=== PATIENT | male | born 1970 | race Caucasian/White ===

== ENCOUNTER 2017-01-09 03:56 | Emergency (ER) | payer OTHER ==
[2017-01-09] MEDS ORDERED: NS 0.9% 1000 ML* 1,000 ML IV ONE ×3 (04:18→09:11)
[2017-01-09] MEDS ORDERED: Ondansetron INJ* 2 MG/ML VIAL IV ONE ×2 (04:18→09:10)
[2017-01-09] MEDS ORDERED: Ondansetron INJ* 2 MG/ML VIAL ONE (04:22)
--- NOTE | 2017-01-09 04:34 | ED ---
I, Oh,Francheska, scribed for Ankur Flood MD on 01/09/17 at 0421 . Abdominal Pain/Male - HPI Summary HPI Summary: This 46 y/o male presents to ED via for persistent diffuse abd pain since 4 days ago. Pt reports positive n/v and difficulty tolerating food or liquid since 4 days ago. Negative diarrhea. Pt decided to visit ED tonight when he had trouble controlling his abd pain. Zofran was given to pt. Pt is reported to have been n/v when oral glucose was attempted en route by EMS. PMHx includes diverticulosis per pt. - History of Current Complaint Chief Complaint: EDAbdPain Stated Complaint: ABD PAIN Time Seen by Provider: 01/09/17 04:02 Hx Obtained From: Patient, EMS Onset/Duration: Gradual Onset, Lasting Days - 4 days, Still Present Timing: Constant Pain Intensity: 8 Pain Scale Used: 0-10 Numeric Location: Diffuse Radiates: No Aggravating Factor(s): Food, Other: - liquid Alleviating Factor(s): Nothing Associated Signs And Symptoms: Positive: Decreased Appetite, Nausea, Vomiting. Negative: Diarrhea - Allergies/Home Medications Allergies/Adverse Reactions: Allergies Allergy/AdvReac Type Severity Reaction Status Date / Time No Known Allergies Allergy Verified 04/05/16 10:17 PMH/Surg Hx/FS Hx/Imm Hx Endocrine/Hematology History: Denies: Hx Diabetes Cardiovascular History: Denies: Hx Congestive Heart Failure, Hx Hypertension, Hx Pacemaker/ICD History: Denies: Hx Dialysis, Hx Renal Disease Sensory History: Denies: Hx Hearing Aid Psychiatric History: Reports: Hx Panic Disorder - Surgical History Surgery Procedure, Year, and Place: left thumb-SURGERY Infectious Disease History: No Infectious Disease History: Denies: Traveled Outside the [place] in Last 30 Days - Family History Known Family History: Negative: Cardiac Disease - Social History Alcohol Use: None Hx Substance Use: No Substance Use Type: Reports: None Hx Tobacco Use: No Smoking Status (MU): Never Smoked Tobacco Review of Systems Negative: Fever Positive: Abdominal Pain, Vomiting, Nausea. Negative: Diarrhea All Other Systems Reviewed And Are Negative: Yes Physical Exam Triage Information Reviewed: Yes Vital Signs On Initial Exam: Initial Vitals Temp Pulse Resp BP Pulse Ox 98.6 F 75 10 129/75 95 01/09/17 04:00 01/09/17 04:00 01/09/17 04:00 01/09/17 04:00 01/09/17 04:00 Vital Signs Reviewed: Yes Appearance: Positive: Well-Appearing, Pain Distress - mild discomfort Skin: Positive: Warm Head/Face: Positive: Normal Head/Face Inspection Eyes: Positive: JC ENT: Positive: Hearing grossly normal Neck: Positive: Supple Respiratory/Lung Sounds: Positive: Breath Sounds Present Cardiovascular: Positive: RRR Abdomen Description: Positive: Soft, Other: - mild diffuse abd tenderness. Negative: Distended, Guarding Bowel Sounds: Positive: Present, Hypoactive Musculoskeletal: Positive: Strength/ROM Intact Neurological: Positive: Alert, Oriented to Person Place, Time - [place] Coma Scale Coma Scale Total: 15 Diagnostics - Vital Signs Vital Signs Temp Pulse Resp BP Pulse Ox 01/09/17 04:00 98.6 F 75 10 129/75 95 - Laboratory Result Diagrams: 01/09/17 04:35 01/09/17 04:35 Lab Statement: Any lab studies that have been ordered have been reviewed, and results considered in the medical decision making process. - CT CT Ab/P CT Interpretation Completed By: Radiologist - See EMR Re-Evaluation - Re-Evaluation First Eval Re-Evaluation Time: 08:15 Change: Improved Comment: Updated pt on status of CT. Discussed sx and why the pt presents to the ED. Pt reports the pain is improved from onset. Second Eval Re-Evaluation Time: 09:42 Change: Unchanged Comment: Discussed CT and lab results with the pt. Discussed admission v. discharge and he would prefer to be D/C to home. Abdominal Pain Fem Course/Dx - Course Assessment/Plan: This 46 y/o male presents to ED for persistent, diffuse abd pain since 4 days ago. Pt reports difficulty tolerating PO liquid & food and n/ v. Pt has been fluid resuscitated with 2L of IV NS, IV reglan, IV zofran, and morphine. He reports PMHx of diverticulosis. Blood work is noted with elevated WBC of 14.8 and total bilirubin of 1.40. CT Ab/P has been ordered and imaging is pending at this moment. Pt will be signed out with pending CT imaging and dispo. - Diagnoses Provider Diagnoses: Abdominal pain, Diverticulosis Discharge - Discharge Plan Condition: Stable Disposition: HOME Discharge Disposition Comment: Signed out at shift chage. Pending CT images and dispo. Prescriptions: Ciprofloxacin TAB* [Cipro 500 MG TAB*] 500 mg PO BID #19 tab HYDROcodone/ACETAMIN 5-325 MG* [Brunson 5-325 TAB*] 1 tab PO Q4H PRN #10 tab MDD 6 PRN Reason: Pain Metronidazole [Flagyl 500 MG TAB] 500 mg PO QID #39 tab Ondansetron ODT TAB* [Zofran 4 MG Odt TAB*] 4 mg PO Q6H PRN #10 tab.odt PRN Reason: Nausea Patient Education Materials: Diverticulosis (ED), Abdominal Pain (ED) Referrals: Atul NIETO,Giuliano Barnes [Primary Care Provider] - Additional Instructions: FOLLOW UP WITH YOUR DOCTOR. RETURN TO THE EMERGENCY DEPARTMENT FOR ANY WORSENING OF YOUR CONDITION' PAIN, YOU FEEL WORSE, YOU FEEL LIKE PASSING OUT OR QUESTIONS OR CONCERNS. The documentation as recorded by the Anton acevedo Soohyun accurately reflects the service I personally performed and the decisions made by me, Ankur Flood MD.
[2017-01-09 04:59] LABS: Hematocrit 56 % (42-52); Hemoglobin 19.4 g/dl (14.0-18.0); Mean Corpuscular HGB Conc 35 g/dl (31-36); Mean Corpuscular Hemoglobin 30 pg (27-31); Mean Corpuscular Volume 87 fL (80-94); Mean Platelet Volume 9 um3 (7.4-10.4); Red Blood Count 6.45 10^6/ul (4.0-5.4); Red Cell Distribution Width 13 % (10.5-15); White Blood Count 14.8 10^3/ul (3.5-10.8)
[2017-01-09 05:00] LABS: Comments Flag Yes
[2017-01-09 05:09] LABS: Albumin 4.7 g/dL (3.2-5.2); BUN/Creatinine Ratio 22.5 (8-20); C Reactive Protein 2.85 mg/L (< 5.00); Calcium 10.5 mg/dL (8.6-10.3); EGFR African American 101.6 (>60); Globulin 4.1 g/dL (2-4); Magnesium 2.1 mg/dL (1.9-2.7); Potassium 3.5 mmol/L (3.5-5.0); Total Bilirubin 1.4 mg/dL (0.2-1.0); Total Protein 8.8 g/dL (6.4-8.9)
[2017-01-09] MEDS ORDERED: Metoclopramide IV* 5 MG/ML 2 ML VIAL IV ONE (05:25)
[2017-01-09] MEDS ORDERED: Metoclopramide IV* 5 MG/ML 2 ML VIAL ONE (05:26)
[2017-01-09] MEDS ORDERED: Morphine INJ* 4 MG/ML 1 ML SYRINGE IV ONE ×2 (05:26→09:10)
[2017-01-09] MEDS ORDERED: Iohexol 300* (CONTRAST) 10 ML SDV IV ONE (07:53)
--- NOTE | 2017-01-09 09:28 | RAD ---
Indication: Abdominal pain. Contrast: Administered 121.0 ml of OMNIPAQUE 300 mgi/ml CT of the abdomen and pelvis was performed after oral and IV contrast administration. Coronal and sagittal reconstructed images were obtained. The lung bases demonstrate no pleural fluid, nodules or masses. Heart is of normal size without evidence of pericardial effusion. Liver is normal in size. It is diffusely decreased in density consistent with hepatic steatosis. Gallbladder demonstrates no calcified gallstones. No pericholecystic fluid or wall thickening is identified. The pancreas demonstrates no mass effect or ductal dilatation. The spleen is normal in size. No adrenal lesions are noted. The kidneys demonstrate symmetric nephrograms without hydronephrosis. No retroperitoneal lymphadenopathy is noted. No dilated loops of bowel are noted. CT of the pelvis demonstrates stool throughout the colon. There is wall thickening of the sigmoid colon with diverticula. No definite evidence of diverticulitis. No abscess is noted. The urinary bladder is unremarkable. There is no no pelvic adenopathy. Prostate and seminal vesicles are unremarkable. No evidence of bowel obstruction is noted. The visualized bony structures are grossly unremarkable. IMPRESSION: DIVERTICULOSIS WITHOUT DEFINITE EVIDENCE OF DIVERTICULITIS. NO EVIDENCE OF ABSCESS IS IDENTIFIED. LIKELY HEPATIC STEATOSIS.
[2017-01-09] MEDS ORDERED: metroNIDAZOLE TAB* 250 MG PO ONE (09:47)
[2017-01-09] MEDS ORDERED: Ciprofloxacin TAB* 500 MG PO ONE (09:48)
--- NOTE | 2017-01-09 09:55 | ED ---
ITorie Rebecca, scribed for Gurvinder Hernández MD on 01/09/17 at 0817 . Progress - Progress Note Progress Note: Pt was signed out from Dr. Flood. Pt reports diffuse abd pain began 4-5 days ago and he has been unable to tolerate PO intake. Confirms that sx have improved since onset. PMHx diverticulosis. PE reveals: General: mildly ill-appearing, no pain distress Skin: warm, skin color reflects adequate perfusion, dry Head: normal Eyes: EOMI, JC ENT: normal Neck: supple, nontender Respiratory: CTA, breath sounds present Cardiovascular: RRR Abdomen: soft, mildly tender in the LLQ Bowel: hypoactive bowel sounds Musculoskeletal: normal, strength/ROM intact Neuro: normal, sensory/motor intact, A&O x3 Psych: affect/mood appropriate CT Abd/Pel: DIVERTICULOSIS WITHOUT DEFINITE EVIDENCE OF DIVERTICULITIS. NO EVIDENCE OF ABSCESS IS IDENTIFIED. LIKELY HEPATIC STEATOSIS Re-Evaluation - Re-Evaluation First Eval Re-Evaluation Time: 08:15 Change: Improved Comment: Updated pt on status of CT. Discussed sx and why the pt presents to the ED. Pt reports the pain is improved from onset. Second Eval Re-Evaluation Time: 09:42 Change: Unchanged Comment: Discussed CT and lab results with the pt. Discussed admission v. discharge and he would prefer to be D/C to home. Course/Dx - Course Course Of Treatment: NO CRITICAL CARE TIME. DISCUSSED RESULTS WITH PATIENT/ . CLINICALLY, PATIENT HAS DIVERTICULITIS. WILL TREAT FOR DIVERTICULITIS. DISCUSSED ADMISSION VERSES OUT PATIENT TREATMENT. PATIENT WISHES TO GO HOME. [facility] HOME STABLE; F/U PMD, RETURN TO ED IF WORSE. - Diagnoses Provider Diagnoses: Abdominal pain, Diverticulosis The documentation as recorded by the Torie acevedo Rebecca accurately reflects the service I personally performed and the decisions made by , Gurvinder Hernández MD.
[2017-01-09] MEDS ORDERED: Ketorolac INJ* 30 MG/ML 1 ML VIAL IV ONE (10:37)
[2017-01-09 11:15] VITALS: BP 131/72
== END 2017-01-09 11:00 | disposition home or self-care (01) ==
LOC: ED 03:56
DX: R10.9 Unspecified abdominal pain (principal); K57.90 Diverticulosis of intestine, part unspecified, without perforation or abscess without bleeding
CPT/HCPCS: 36415; 74177; 80053; 83605; 83690; 83735; 85025; 86140; 96360; 96361; 96374; 96375; 99285; A9270-GY; J1885; J2270; J2405; Q9967

== ENCOUNTER 2017-10-01 15:39 | Emergency (ER) | payer MEDICAID, OTHER ==
[2017-10-01 19:52] VITALS: BP 0/0
== END 2017-10-01 19:50 | disposition left against medical advice (07) ==
LOC: ED 15:39
DX: R11.10 Vomiting, unspecified (principal); Z53.21 Procedure and treatment not carried out due to patient leaving prior to being seen by health care provider

== ENCOUNTER 2017-11-17 11:23 | Emergency (ER) | payer MEDICAID, OTHER ==
[2017-11-17 11:41] VITALS: BP 141/104
--- NOTE | 2017-11-17 11:55 | UC ---
Abdominal Pain Male HPI - HPI Summary HPI Summary: 3 weeks of generalized low abdominal pain, R back pain, nausea, and low appetite. Reports frequent "dry heaves" with 2-3 episodes of actual vomiting. Denies any urinary symptoms. 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 - History of Current Complaint Chief Complaint: UCAbdominalPain Stated Complaint: ABDOMINAL PAIN, AND VOMITING Time Seen by Provider: 11/17/17 11:44 Hx Obtained From: Patient Onset/Duration: Gradual Onset, Lasting Weeks Timing: Constant Severity Initially: Mild Severity Currently: Moderate Pain Intensity: 4 Location: Discrete At: RLQ, Discrete At: LLQ, Suprapubic Radiates: Yes Radiates to: Back, Flank Character: Aching, Burning, Cramping, Dull Aggravating Factor(s): Food, Movement Alleviating Factor(s): Rest Associated Signs And Symptoms: Positive: Nausea, Vomiting, Diarrhea - Allergies/Home Medications Allergies/Adverse Reactions: Allergies Allergy/AdvReac Type Severity Reaction Status Date / Time No Known Allergies Allergy Verified 11/17/17 11:42 PMH/Surg Hx/FS Hx/Imm Hx GI/ History: Diverticulitis - Surgical History Surgical History: Yes Surgery Procedure, Year, and Place: left thumb-SURGERY - Family History Known Family History: Negative: Cardiac Disease - Social History Lives: With Family Alcohol Use: None Substance Use Type: Heroin - reports clean x 2 months, Prescribed - in the recent past Smoking Status (MU): Never Smoked Tobacco Review of Systems Constitutional: Negative Skin: Negative Eyes: Negative ENT: Negative Respiratory: Negative Cardiovascular: Negative Gastrointestinal: Abdominal Pain, Vomiting, Diarrhea, Nausea Genitourinary: Negative Motor: Negative Neurovascular: Negative Musculoskeletal: Negative Neurological: Negative Psychological: Negative Is Patient Immunocompromised?: No All Other Systems Reviewed And Are Negative: Yes Physical Exam Triage Information Reviewed: Yes Appearance: Well-Appearing, Well-Nourished, Obese Vital Signs: Initial Vital Signs Temp 97.3 F 11/17/17 11:37 Pulse 89 11/17/17 11:37 Resp 16 11/17/17 11:37 BP 141/104 11/17/17 11:37 Pulse Ox 99 11/17/17 11:37 Vital Signs Reviewed: Yes Eye Exam: Normal Eyes: Positive: Conjunctiva Clear ENT Exam: Normal ENT: Positive: Normal ENT inspection, Hearing grossly normal, Pharynx normal Dental Exam: Normal Neck exam: Normal Neck: Positive: Supple, Nontender, No Lymphadenopathy Respiratory Exam: Normal Respiratory: Positive: Chest non-tender, Lungs clear, Normal breath sounds, No respiratory distress, No accessory muscle use Cardiovascular Exam: Normal Cardiovascular: Positive: RRR, No Murmur Abdomen Description: Positive: Soft, McBurney's Point Tenderness - mild, symmetric with pain on LLQ, Other: - low abd tenderness, no pain or tenderness in upper aspect of abd. Negative: CVA Tenderness (R), CVA Tenderness (L), Distended, Guarding Musculoskeletal Exam: Normal Neurological Exam: Normal Neurological: Positive: Alert Psychological Exam: Normal Skin Exam: Normal Abd Pain Male Course/Dx - Course Course Of Treatment: Discussed with patient about need for further testing, as he does not have obvious diagnosis nor does he have follow-up with PCP. Pt agrees to go to ED, states understanding of risks. - Differential Dx/Clinical Impression Provider Diagnoses: abdominal pain Discharge - Sign-Out/Discharge Documenting (check all that apply): Discharge/Admit/Transfer - Discharge Plan Condition: Stable Disposition: HOME Patient Education Materials: Acute Abdominal Pain (ED) Referrals: No Primary Care Phys,NOPCP [Primary Care Provider] - Additional Instructions: As we discussed, we do not have enough capability to test you for the cause of your abdominal pain. Please get seen in the emergency department right away. - Billing Disposition and Condition Condition: STABLE Disposition: HOME
== END 2017-11-17 12:00 | disposition home or self-care (01) ==
LOC: UCEAST 11:23
DX: R10.30 Lower abdominal pain, unspecified (principal); M54.9 Dorsalgia, unspecified; R11.2 Nausea with vomiting, unspecified; R19.7 Diarrhea, unspecified; K57.92 Diverticulitis of intestine, part unspecified, without perforation or abscess without bleeding
CPT/HCPCS: 99212; G0463

== ENCOUNTER 2017-11-17 12:29 | Emergency (ER) | payer OTHER ==
[2017-11-17] MEDS ORDERED: Pantoprazole IV* 40 MG IV ONE (13:11)
[2017-11-17] MEDS ORDERED: NS 0.9% 1000 ML* 2,000 ML IV ONE (13:11)
[2017-11-17 13:28] LABS: ABS Basophils 0.1 10^3/ul (0-0.2); ABS Eosinophils 0.2 10^3/ul (0-0.6); ABS Lymphocytes 2.7 10^3/ul (1.0-4.8); ABS Monocytes 0.9 10^3/ul (0-0.8); ABS Neutrophils 5.4 10^3/ul (1.5-7.7); ABS Nucleated RBC 0 10^3/ul; Eosinophil % 2.6 % (0-6); Hematocrit 51 % (42-52); Hemoglobin 17.3 g/dl (14.0-18.0); Lymphocyte % 29.5 % (25-47); Mean Corpuscular HGB Conc 34 g/dl (31-36); Mean Corpuscular Hemoglobin 30 pg (27-31); Mean Corpuscular Volume 88 fL (80-94); Mean Platelet Volume 8.5 um3 (7.4-10.4); Nucleated Red Blood Cells % 0.1; Platelet Count 259 10^3/ul (150-450); Red Blood Count 5.78 10^6/ul (4.0-5.4); Red Cell Distribution Width 14 % (10.5-15); White Blood Count 9.3 10^3/ul (3.5-10.8)
[2017-11-17 13:36] LABS: INR 0.9 (0.77-1.02)
[2017-11-17] MEDS ORDERED: Iohexol 300* (CONTRAST) 10 ML SDV IV ONE (13:58)
--- NOTE | 2017-11-17 15:56 | RAD ---
Indication: Abdominal pain. Contrast: Administered 121.2 ml of OMNIPAQUE 300 mg/ml CT of the abdomen and pelvis was performed after oral and IV contrast administration. Lung bases demonstrate no pleural fluid, nodules or masses. Heart is of normal size without evidence of pericardial effusion. Liver is normal in size. No focal lesions or intrahepatic ductal dilatation is noted. The liver appears to be diffusely decreased in density consistent with hepatic steatosis. The gallbladder demonstrates no calcified gallstones. No pericholecystic fluid or wall thickening is noted. Pancreas demonstrates no mass or pancreatic duct dilatation. The spleen is normal in size. No adrenal masses noted. The kidneys demonstrate symmetric nephrograms without hydronephrosis. No dilated loops of bowel are noted. CT of the pelvis demonstrates no retroperitoneal or pelvic lymphadenopathy. Prostate is unremarkable. Urinary bladder is unremarkable. Aorta and inferior vena cava are unremarkable. The bony structures are grossly unremarkable. Diverticulosis of the sigmoid colon is noted without evidence diverticulitis. IMPRESSION: There is diverticulosis without definite evidence of diverticulitis. No peridiverticular fluid collection or infiltration of fat is noted. There is likely hepatic steatosis noted.
--- NOTE | 2017-11-17 16:28 | ED ---
Juan Kim Stephanie, scribed for Gurvinder Hernández MD on 11/17/17 at 1332 . Abdominal Pain/Male - HPI Summary HPI Summary: The pt is a 47 y/o M presenting to the ED with c/o R sided flank pain that began a few weeks ago. Symptoms include abd pain, gastric reflux, diarrhea, nausea, cough, lack of appetite, sleep disturbances, sore throat and vomiting in the morning. He denies dysuria, testicular pain and blood in the stool. The pt states he took left over tablets of abx to try to relieve his symptoms. His pain is rated as a 4 in severity. The pt states he was on prescription medication for his back and neck pain for the past 8 years but has been off his medications. The pt has hx of diverticulosis. - History of Current Complaint Chief Complaint: EDAbdPain Stated Complaint: VOMITTING Time Seen by Provider: 11/17/17 13:00 Hx Obtained From: Patient Onset/Duration: Gradual Onset, Lasting Weeks, Still Present Timing: Constant Severity Currently: Moderate Pain Intensity: 4 Pain Scale Used: 0-10 Numeric Location: Diffuse, Flank - R Radiates: Yes Radiates to: Flank - R Aggravating Factor(s): Nothing Alleviating Factor(s): Nothing Associated Signs And Symptoms: Positive: Cough, Decreased Appetite, Nausea, Vomiting, Diarrhea. Negative: Blood in Stool - Allergies/Home Medications Allergies/Adverse Reactions: Allergies Allergy/AdvReac Type Severity Reaction Status Date / Time No Known Allergies Allergy Verified 11/17/17 12:33 Home Medications: Home Medications Omeprazole CAP* [Prilosec CAP* 20 MG] 20 mg PO BID 11/17/17 [History Confirmed 11/17/17] PMH/Surg Hx/FS Hx/Imm Hx Endocrine/Hematology History: Denies: Hx Diabetes Cardiovascular History: Denies: Hx Congestive Heart Failure, Hx Hypertension, Hx Pacemaker/ICD History: Denies: Hx Dialysis, Hx Renal Disease Sensory History: Denies: Hx Hearing Aid Psychiatric History: Reports: Hx Panic Disorder - Surgical History Surgery Procedure, Year, and Place: left thumb-SURGERY Infectious Disease History: No Infectious Disease History: Denies: Traveled Outside the [place] in Last 30 Days - Family History Known Family History: Negative: Cardiac Disease - Social History Occupation: Employed Full-time Lives: With Family Alcohol Use: None Hx Substance Use: Yes Substance Use Type: Reports: Heroin - reports clean x 2 months, Prescribed - in the recent past Hx Tobacco Use: No Smoking Status (MU): Never Smoked Tobacco Review of Systems Positive: Other - lack of appetite, sleep disturbance. Negative: Fever Positive: Sore Throat Positive: Cough Positive: Abdominal Pain, Vomiting, Diarrhea, Nausea, Other - gastric reflux Positive: flank pain - R All Other Systems Reviewed And Are Negative: Yes Physical Exam - Summary Physical Exam Summary: General: well-appearing, no pain distress Skin: warm, color reflects adequate perfusion, dry Head: normal Eyes: EOMI, JC ENT: normal Neck: supple, nontender Respiratory: CTA, breath sounds present Cardiovascular: RRR Abdomen: soft, tender R and L lower abd, no rebound Bowel: present Musculoskeletal: normal, strength/ROM intact Neurological: sensory/motor intact, A&O x3 Psychological: affect/mood appropriate Triage Information Reviewed: Yes Vital Signs On Initial Exam: Initial Vitals Temp Pulse Resp BP Pulse Ox 97.9 F 81 16 117/101 97 11/17/17 12:31 11/17/17 12:31 11/17/17 12:31 11/17/17 12:31 11/17/17 12:31 Vital Signs Reviewed: Yes Diagnostics - Vital Signs Vital Signs Temp Pulse Resp BP Pulse Ox 11/17/17 12:31 97.9 F 81 16 117/101 97 - Laboratory Lab Results: Lab Results 11/17/17 11/17/17 11/17/17 Range/Units 13:19 13:19 13:19 WBC 9.3 (3.5-10.8) 10^3/ul RBC 5.78 H (4.0-5.4) 10^6/ul Hgb 17.3 (14.0-18.0) g/dl Hct 51 (42-52) % MCV 88 (80-94) fL MCH 30 (27-31) pg MCHC 34 (31-36) g/dl RDW 14 (10.5-15) % Plt Count 259 (150-450) 10^3/ul MPV 8.5 (7.4-10.4) um3 Neut % (Auto) 57.7 (38-83) % Lymph % (Auto) 29.5 (25-47) % [place] % (Auto) 9.4 H (0-7) % Eos % (Auto) 2.6 (0-6) % Baso % (Auto) 0.8 (0-2) % Absolute Neuts (auto) 5.4 (1.5-7.7) 10^3/ul Absolute Lymphs (auto) 2.7 (1.0-4.8) 10^3/ul Absolute Monos (auto) 0.9 H (0-0.8) 10^3/ul Absolute Eos (auto) 0.2 (0-0.6) 10^3/ul Absolute Basos (auto) 0.1 (0-0.2) 10^3/ul Absolute Nucleated RBC 0 10^3/ul Nucleated RBC % 0.1 INR (Anticoag Therapy) 0.90 (0.77-1.02) APTT 29.4 (26.0-36.3) seconds Sodium 138 L (139-145) mmol/L Potassium 4.0 (3.5-5.0) mmol/L Chloride 102 (101-111) mmol/L Carbon Dioxide 29 (22-32) mmol/L Anion Gap 7 (2-11) mmol/L BUN 13 (6-24) mg/dL Creatinine 0.89 (0.67-1.17) mg/dL Est GFR ( Amer) 118.3 (>60) Est GFR (Non-Af Amer) 92.0 (>60) BUN/Creatinine Ratio 14.6 (8-20) Glucose 98 (70-100) mg/dL Lactic Acid (0.5-2.0) mmol/L Calcium 9.7 (8.6-10.3) mg/dL Total Bilirubin 0.50 (0.2-1.0) mg/dL AST 26 (13-39) U/L ALT 43 (7-52) U/L Alkaline Phosphatase 79 (34-104) U/L C-Reactive Protein 1.45 (< 5.00) mg/L Total Protein 7.8 (6.4-8.9) g/dL Albumin 4.3 (3.2-5.2) g/dL Globulin 3.5 (2-4) g/dL Albumin/Globulin Ratio 1.2 (1-3) Lipase 23 (11.0-82.0) U/L 11/17/17 Range/Units 13:19 WBC (3.5-10.8) 10^3/ul RBC (4.0-5.4) 10^6/ul Hgb (14.0-18.0) g/dl Hct (42-52) % MCV (80-94) fL MCH (27-31) pg MCHC (31-36) g/dl RDW (10.5-15) % Plt Count (150-450) 10^3/ul MPV (7.4-10.4) um3 Neut % (Auto) (38-83) % Lymph % (Auto) (25-47) % [place] % (Auto) (0-7) % Eos % (Auto) (0-6) % Baso % (Auto) (0-2) % Absolute Neuts (auto) (1.5-7.7) 10^3/ul Absolute Lymphs (auto) (1.0-4.8) 10^3/ul Absolute Monos (auto) (0-0.8) 10^3/ul Absolute Eos (auto) (0-0.6) 10^3/ul Absolute Basos (auto) (0-0.2) 10^3/ul Absolute Nucleated RBC 10^3/ul Nucleated RBC % INR (Anticoag Therapy) (0.77-1.02) APTT (26.0-36.3) seconds Sodium (139-145) mmol/L Potassium (3.5-5.0) mmol/L Chloride (101-111) mmol/L Carbon Dioxide (22-32) mmol/L Anion Gap (2-11) mmol/L BUN (6-24) mg/dL Creatinine (0.67-1.17) mg/dL Est GFR ( Amer) (>60) Est GFR (Non-Af Amer) (>60) BUN/Creatinine Ratio (8-20) Glucose (70-100) mg/dL Lactic Acid 0.7 (0.5-2.0) mmol/L Calcium (8.6-10.3) mg/dL Total Bilirubin (0.2-1.0) mg/dL AST (13-39) U/L ALT (7-52) U/L Alkaline Phosphatase (34-104) U/L C-Reactive Protein (< 5.00) mg/L Total Protein (6.4-8.9) g/dL Albumin (3.2-5.2) g/dL Globulin (2-4) g/dL Albumin/Globulin Ratio (1-3) Lipase (11.0-82.0) U/L Result Diagrams: 11/17/17 13:19 11/17/17 13:19 Lab Statement: Any lab studies that have been ordered have been reviewed, and results considered in the medical decision making process. - CT Abdomen/Pelvis CT Interpretation: No Acute Changes CT Interpretation Completed By: Radiologist - There is diverticulosis without definite evidence of diverticulitis. No peridiverticular fluid collection or infiltration of fat is noted. There is likely hepatic steatosis noted. ED physician has reviewed this report. Abdominal Pain Fem Course/Dx - Course Course Of Treatment: DISCUSSED RESULTS WITH THE PATIENT AND HIS . PATIENT HAS BEEN TAKING AUGMENTIN FOR 3 DAYS FOR DIVERTICULITIS SX AND IMPROVING. HE WISHES TO CONTINUE THE AUGMENTIN. RX AUGMENTIN. F/U PMD. RETURN IF WORSE. - Diagnoses Provider Diagnoses: Abdominal pain, Diverticulosis Discharge - Sign-Out/Discharge Documenting (check all that apply): Discharge/Admit/Transfer - Discharge Plan Condition: Stable Disposition: HOME Prescriptions: Amoxicillin/Clavulanate TAB* [Augmentin TAB 875*] 875 mg PO BID #20 tab Patient Education Materials: Abdominal Pain (ED), Diverticulosis (ED), Diverticulitis Diet (ED) Referrals: Hermilo Villegas MD [Medical Doctor] - Additional Instructions: FOLLOW UP WITH YOUR DOCTOR. RETURN TO THE EMERGENCY DEPARTMENT FOR ANY WORSENING OF YOUR CONDITION; PAIN, FEVER, BLOOD IN YOUR STOOL, YOU FEEL ILL OR QUESTIONS OR CONCERNS. - Billing Disposition and Condition Condition: STABLE Disposition: HOME The documentation as recorded by the Juan acevedo Stephanie accurately reflects the service I personally performed and the decisions made by me, Gurvinder Hernández MD.
[2017-11-17 16:47] VITALS: BP 129/89
== END 2017-11-17 16:45 | disposition home or self-care (01) ==
LOC: ED 12:29
DX: K57.30 Diverticulosis of large intestine without perforation or abscess without bleeding (principal)
CPT/HCPCS: 36415; 74177; 80053; 83605; 83690; 85025; 85610; 85730; 86140; 96361; 96374; 99283; Q9967